=== PATIENT | male | born 1960 | race Two or more races ===

== ENCOUNTER 2016-11-26 15:28 | Emergency (ER) | payer MEDICAID ==
--- NOTE | 2016-11-26 16:35 | ER Document Report ---
ED Medical Screen (RME) - General Chief Complaint: Shoulder Pain Stated Complaint: SHOLDER AND ARM PAIN Time Seen by Provider: 11/26/16 15:52 Mode of Arrival: Ambulatory Information source: Patient, Relative Notes: 55-year-old male presents to ED for complaint of left shoulder and neck pain. States he woke up with this pain 2 days ago. 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 While trying to assess the patient and is adamant that the patient needed scan and MRIs to make sure that his cervical disc were not worse because that is what they were told by the neurosurgeon in [place]. States she has the disc of the MRIs in the CT that the doctor can look at. I have greeted and performed a rapid initial assessment of this patient. A comprehensive ED assessment and evaluation of the patient, analysis of test results and completion of medical decision making process will be conducted by an additional ED providers. TRAVEL OUTSIDE OF THE [place] IN LAST 30 DAYS: No - Related Data Allergies/Adverse Reactions: gabapentin [From Neurontin] Allergy (Verified 11/26/16 15:38) ketorolac [From Toradol] Allergy (Verified 11/26/16 15:38) morphine Allergy (Verified 11/26/16 15:38) oxycodone [From OxyContin] Allergy (Verified 11/26/16 15:38) promethazine [From Phenergan] Allergy (Verified 11/26/16 15:38) Eajqnmo-Xld-Aof Reductase Inhibitor Allergy (Verified 11/26/16 15:38) Past Medical History - Social History Chew tobacco use (# tins/day): No Drug Abuse: None Renal/ Medical History: Denies: Hx Peritoneal Dialysis - Immunizations Hx Diphtheria, Pertussis, Tetanus Vaccination: Yes Physical Exam - Vital signs Vitals: Temp Pulse Resp BP Pulse Ox 98.4 F 79 16 130/83 H 97 11/26/16 15:34 11/26/16 15:34 11/26/16 15:34 11/26/16 15:34 11/26/16 15:34 Course - Vital Signs Vital signs: Temp Pulse Resp BP Pulse Ox 98.4 F 79 16 130/83 H 97 11/26/16 15:34 11/26/16 15:34 11/26/16 15:34 11/26/16 15:34 11/26/16 15:34
--- NOTE | 2016-11-26 17:22 | ER Document Report ---
ED Extremity Problem, Upper - General Mode of Arrival: Ambulatory Information source: Patient, Relative - and daughter TRAVEL OUTSIDE OF THE [place] IN LAST 30 DAYS: No - HPI Patient complains to provider of: Pain, Weakness, Left, Arm, Shoulder Onset: Other - 3 days ago Context: Other - see notes above <TATA BOYD - Last Filed: 11/26/16 19:07> <CHRISSY CHAVEZ - Last Filed: 11/26/16 19:27> - General Chief Complaint: Shoulder Pain Stated Complaint: SHOLDER AND ARM PAIN Time Seen by Provider: 11/26/16 16:50 Notes: 55 year old male with history of C5-T1 degenerative disc disease presents to the ED complaining of sharp shooting left shoulder pain that radiates up the left neck and down the left arm which worsened 3 days ago. Patient reports chronic pain, but is currently experiencing acute exacerbation. Patient describes the pain as if there is a knife to his left scapula with pain lightning pain shooting out of his neck every time he stretches his head to the right. He reports that his left shoulder feels like it is being pulled out of his socket 'from the scapula side.' Patient is also complaining of increasing left arm weakness and incoordination. Patient has chronic numbness to the bilateral 5th digits, but reports new numbness to the bilateral 4th digit. Patient denies fever, chest pain, or shortness of breath. Patient has had multiple MRIs in the past. PCP: Dr. Ramirez, Counts include 234 beds at the [facility] Medications: Metoprolol Hydrocodone TID Hydromorphone (TATA BOYD) - Related Data Allergies/Adverse Reactions: gabapentin [From Neurontin] Allergy (Verified 11/26/16 15:38) ketorolac [From Toradol] Allergy (Verified 11/26/16 15:38) morphine Allergy (Verified 11/26/16 15:38) oxycodone [From OxyContin] Allergy (Verified 11/26/16 15:38) promethazine [From Phenergan] Allergy (Verified 11/26/16 15:38) Uctjgew-Raf-Jrd Reductase Inhibitor Allergy (Verified 11/26/16 15:38) Past Medical History - General Information source: Patient, Relative - Social History Chew tobacco use (# tins/day): No Drug Abuse: None Patient has suicidal ideation: No Patient has homicidal ideation: No Renal/ Medical History: Denies: Hx Peritoneal Dialysis Musculoskeltal Medical History: Reports Other - C5-T1 degenerative disc disease - Immunizations Hx Diphtheria, Pertussis, Tetanus Vaccination: Yes <LUCY BOYDUR - Last Filed: 11/26/16 19:07> - Social History Smoking Status: Never Smoker Family History: Hypertension <CHRISSY CHAVEZ - Last Filed: 11/26/16 19:27> Physical Exam <LUCY BOYDUR - Last Filed: 11/26/16 19:07> <CHRISSY CHAVEZ - Last Filed: 11/26/16 19:27> - Vital signs Vitals: Temp Pulse Resp BP Pulse Ox 98.4 F 79 16 130/83 H 97 11/26/16 15:34 11/26/16 15:34 11/26/16 15:34 11/26/16 15:34 11/26/16 15:34 - Notes Notes: GENERAL: Alert, interacts well. No acute distress. HEAD: Normocephalic, atraumatic. EYES: Pupils equal, round, and reactive to light. Extraocular movements intact. ENT: Oral mucosa moist, tongue midline. NECK: Full range of motion. Supple. Trachea midline. Mild positional swelling inferior to the right clavicle. LUNGS: Clear to auscultation bilaterally, no wheezes, rales, or rhonchi. No respiratory distress. HEART: Regular rate and rhythm. No murmurs, gallops, or rubs. EXTREMITIES: Moves all 4 extremities spontaneously. No edema, radial pulses 2/4 bilaterally. No cyanosis. No spasms to the SCM or trapezius muscles. Cervical lymph nodes are not swollen on palpation. NEUROLOGICAL: Alert and oriented x3. Normal speech. Biceps and patellar DTRs 2+ bilaterally. PSYCH: Normal affect, normal mood. SKIN: Warm, dry, normal turgor. No rashes or lesions noted. (BOYD,TATA) Course <BOYDTATA - Last Filed: 11/26/16 19:07> <CHRISSY CHAVEZ - Last Filed: 11/26/16 19:27> - Re-evaluation Re-evalutation: 11/26/16 18:13 No Sign of acute severe nerve impingement that would require immediate decompression. No new weakness, minimal new numbness. Still has 5 out of 5 muscle strength in the left upper extremity. Does have some pain with range of motion. No indication for emergent MRI or emergent surgery. Patient was offered Lyrica as this will help with the neuropathic pain but he refuses to take this, he thinks he may have had a bad reaction in the past but does not remember. He is allergic to Neurontin as well. Patient will be started on steroids and Flexeril. Discharged home. Encouraged to follow-up as an outpatient for nonemergent MRI. 11/26/16 19:26 (CHRISSY CHAVEZ) - Vital Signs Vital signs: Temp Pulse Resp BP Pulse Ox 98.4 F 81 18 129/80 H 97 11/26/16 15:34 11/26/16 18:21 11/26/16 18:21 11/26/16 18:21 11/26/16 18:21 Discharge <TATA BOYD - Last Filed: 11/26/16 19:07> <CHRISSY CHAVEZ - Last Filed: 11/26/16 19:27> - Discharge Clinical Impression: Essential hypertension, Cervical radiculopathy Condition: Stable Disposition: HOME, SELF-CARE Additional Instructions: Today there is no sign that you need emergent surgery to save the nerves in your neck. If you suddenly lose the ability to move your left arm or if you suddenly lose feeling in your left arm please return immediately. Prescriptions: Cyclobenzaprine HCl [Flexeril 5 mg Tablet] 5 - 10 mg PO TID #30 tablet Methylprednisolone [Medrol Dosepack (4 mg/Tab) 21 Tab/Dosepak] 21 tab PO ASDIR PRN #1 dspk PRN Reason: Referrals: ALYX CONNER PA-C [Primary Care Provider] - Follow up in 1 week Scribe Attestation: 11/26/16 19:27 I personally performed the services described in the documentation, reviewed and edited the documentation which was dictated to the scribe in my presence, and it accurately records my words and actions. (CHRISSY CHAVEZ) Scribe Documentation - Scribe Written by Tamara:: Tamara Goss, 11/26/2016 2910 acting as scribe for :: Lisbeth <TATA BOYD - Last Filed: 11/26/16 19:07>
[2016-11-26] MEDS ORDERED: PREDNISONE 20 MG TABLET PO ONE (18:12)
[2016-11-26] MEDS ORDERED: CYCLOBENZAPRINE HCL 10 MG TABLET PO ONE (18:12)
[2016-11-26 18:22] VITALS: BP 129/80
== END 2016-11-26 18:21 | disposition home or self-care (01) ==
LOC: ER 15:28
DX: M54.12 Radiculopathy, cervical region (principal); I10 Essential (primary) hypertension; R53.1 Weakness; Z88.6 Allergy status to analgesic agent
CPT/HCPCS: 99283; J3490; J7512